=== PATIENT | male | born 1990 | race Caucasian/White ===

== ENCOUNTER 2018-04-01 01:59 | Emergency (ER) | payer BC, OTHER ==
[2018-04-01] MEDS ORDERED: Lidocaine 1% PF 5 ML VIAL ONE (03:17)
[2018-04-01] MEDS ORDERED: HYDROcodone/Acetaminophen 5/325 mg Tablet ONE (04:54)
== END 2018-04-01 05:01 | disposition home or self-care (01) ==
LOC: ERS 01:59
DX: S61.211A Laceration without foreign body of left index finger without damage to nail, initial encounter (principal); Z71.6 Tobacco abuse counseling; F17.210 Nicotine dependence, cigarettes, uncomplicated; W26.0XXA Contact with knife, initial encounter
CPT/HCPCS: 12002; 99406; J2001

== ENCOUNTER 2023-04-23 07:30 | Day surgery (SDC) | payer OTHER ==
[2023-04-22 12:00] VITALS: BMI 31.0
[2023-04-23] MEDS ORDERED: PROPOFOL 200 MG/20 ML VIAL ONE (09:37)
[2023-04-23] MEDS ORDERED: Lidocaine 1% PF 5 ML VIAL ONE (09:37)
== END 2023-04-23 11:07 | disposition home or self-care (01) ==
LOC: SDC 07:30
PROVIDERS: ATTEND Internal Medicine Gastroenterology
PROC: 0DJD8ZZ Inspection of Lower Intestinal Tract, Via Natural or Artificial Opening Endoscopic (ICD-10-PCS; principal; 2023-04-23)
DX: K92.1 Melena (principal); K64.8 Other hemorrhoids
CPT/HCPCS: J2704